=== PATIENT | male | born 1930 | race Caucasian/White ===

== ENCOUNTER 2018-01-03 11:49 | Emergency (ER) | payer MEDICARE, BC, OTHER ==
--- NOTE | 2018-01-03 13:02 | CT ---
CT BRAIN WITHOUT CONTRAST: Date: 01/03/18 HISTORY: Injury, headache. FINDINGS: No evidence of acute infarct, hemorrhage, midline shift, or abnormal extra-axial fluid collections ar e seen. The ventricular size is appropriate and the basilar cisterns are patent. The bony calvarium i s intact. The visualized paranasal sinuses and mastoid air cells are well aerated. IMPRESSION: No CT evidence of acute intracranial process. POS: [facility]
--- NOTE | 2018-01-03 13:05 | CT ---
CT CERVICAL SPINE WITH CORONAL AND SAGITTAL REFORMATIONS: Date: 01/03/18 HISTORY: Fall, injury, neck pain. FINDINGS/IMPRESSION: There are marked degenerative changes in the cervical spine. No acute fracture or subluxation is iden tified. 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 There is an 8.0 mm hypodense nodule in the left lobe of the thyroid gland. POS: [facility]
== END 2018-01-03 12:58 | disposition home or self-care (01) ==
LOC: ERS 11:49
DX: S01.01XA Laceration without foreign body of scalp, initial encounter (principal); Z79.899 Other long term (current) drug therapy; W19.XXXA Unspecified fall, initial encounter; Y92.238 Other place in hospital as the place of occurrence of the external cause
CPT/HCPCS: 12001; 70450; 72125

== ENCOUNTER 2018-12-11 07:34 | Outpatient (CLI) | payer MEDICARE, BC, OTHER ==
--- NOTE | 2018-12-11 10:18 | MRI ---
MRI LUMBAR SPINE WITHOUT IV CONTRAST: Date: 12-11-18 History: Lumbar stenosis with neurogenic claudication. Comparison: None available. FINDINGS: The limited visualized retroperitoneal structures demonstrate a grossly normal MRI appearance. Conus medullaris is normal in appearance and terminates at the level of the L1 vertebral body. A few scattered Schmorl's nodes are seen within the endplates of the lumbar spine as well as lower th oracic spine. Mild endplate degenerative changes are present at multiple levels. There are prominent osteophytes seen anteriorly. T12-L1: There is no significant disc bulge or disc herniation. The central spinal canal and neural fo ramina are patent. L1-2: There is minimal disc osteophyte complex with mild facet degenerative changes. There is slight effacement of the anterior aspect of the thecal sac. Mild bilateral neural foraminal narrowing is pre sent. L2-3: There is loss of intervertebral disc height. A broad based disc osteophyte complex is present. There are facet hypertrophic changes present with fluid signal intensity seen within the facet joints likely related to the degenerative changes. Mild ligamentous thickening is present. There is mild to moderate narrowing of the central spinal canal with moderate left and moderate to severe right sided neural foraminal narrowing. L3-4: There is prominent loss of intervertebral disc height with endplate degenerative changes. A bro ad based disc osteophyte complex is present and there are facet hypertrophic changes with ligamentous thickening. Findings result in severe narrowing of the central spinal canal as well as narrowing of the lateral recesses. There is severe bilateral neural foraminal narrowing, greater on the right. L4-5: There is a broad based disc osteophyte complex. There are moderate facet hypertrophic changes w ith fluid signal intensity seen within the facet joints likely related to the degenerative changes. T here is mild edema seen within the region of the right sided pedicle and facet of L4 on the right whi ch is likely reactive in origin due to the prominent facet degenerative changes. Severe bilateral kristen ral foraminal narrowing is present, much greater on the left. There is also severe narrowing of the c entral spinal canal present. L5-S1: There is minimal disc bulge, central spinal canal is patent. There are facet hypertrophic de león ges present. There is mild edema seen within the pedicles bilaterally as well as involving the superi or articulating facets likely attributable to reactive changes due to adjacent prominent facet hypert rophic changes. The neural foramina are patent. 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 There are severe degrees of neural foraminal narrowing at the L3-4 and L4-5 levels with mod erate to severe degrees of neural foraminal narrowing at the L2-3 level. Moderate narrowing of the ce ntral spinal canal is present at the L2-3 with severe narrowing of the central spinal canal at the L3 -4 and L4-5 levels. POS: [facility]
== END 2018-12-11 07:35 | disposition home or self-care (01) ==
LOC: MRI 07:34
PROVIDERS: ATTEND Anesthesiology Pain Medicine
DX: M48.062 Spinal stenosis, lumbar region with neurogenic claudication (principal); M47.816 Spondylosis without myelopathy or radiculopathy, lumbar region
CPT/HCPCS: 72148